=== PATIENT | female | born 1990 | race Caucasian/White ===

== ENCOUNTER 2020-12-23 08:35 | Emergency (ER) | payer BC, SELFPAY ==
[2020-12-23 09:07] LABS: Urine Blood Trace-intact (Negative); Urine Glucose Negative (Negative); Urine Protein 2+ (Negative); Urine Specific Gravity >=1.030 (1.005-1.030); Urine pH 5.5 (5.0-7.0)
[2020-12-23 09:33] LABS: Urine Specific Gravity/Preg >1.030 (1.005-1.030)
[2020-12-23 09:42] LABS: Urine Bacteria 20-50 /HPF (<20)
[2020-12-23] MEDS ORDERED: LIDOCAINE 1% MPF 2 ML AMPULE ONE ×2 (10:21→10:32)
[2020-12-23] MEDS ORDERED: CEFTRIAXONE 500 MG/VIAL ONE (10:21)
[2020-12-23] MEDS ORDERED: AZITHROMYCIN 250 MG TAB ONE ×2 (10:21→10:33)
--- NOTE | 2020-12-23 10:29 | ER ---
Nurse's Notes [facility] Name: Kim Marie Age: 29 yrs Sex: Female : 1990 Arrival Date: 12/23/2020 Time: 08:37 Bed 6 Private MD: Diagnosis: Unspecified sexually transmitted disease;UTI/ Urinary tract infection, site not specified Presentation: 12/23 08:47 Chief complaint: Patient states: "I am having some vaginal discharge and bad smell with jd3 pain.". Coronavirus screen: At this time, the client does not indicate any symptoms associated with coronavirus-19. Ebola Screen: Patient negative for fever greater than or equal to 101.5 degrees Fahrenheit, and additional compatible Ebola Virus Disease symptoms. Initial Sepsis Screen: Does the patient meet any 2 criteria? No. Patient's initial sepsis screen is negative. Does the patient have a suspected source of infection? No. Patient's initial sepsis screen is negative. Risk Assessment: Do you want to hurt yourself or someone else? Patient reports no desire to harm self or others. Onset of symptoms was December 22, 2020. 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 - Social history:: Smoking status: Patient/guardian denies using tobacco. Screenin:56 Abuse screen: Denies threats or abuse. Denies injuries from another. Nutritional sv screening: No deficits noted. Tuberculosis screening: No symptoms or risk factors identified. Fall Risk None identified. Assessment: 09:30 General: Appears in no apparent distress. comfortable, well developed, well nourished, sv Behavior is calm, cooperative, appropriate for age. Pain: Complains of pain in suprapubic area Pain currently is 4 out of 10 on a pain scale. Neuro: Level of Consciousness is awake, alert, obeys commands, Oriented to person, place, time, situation, Moves all extremities. Full function Gait is steady. Respiratory: Respiratory effort is even, unlabored, Respiratory pattern is regular, symmetrical. Derm: Skin is pink, warm \\T\\ dry. 10:35 Reassessment: Patient appears in no apparent distress at this time. No changes from sv previously documented assessment. Patient and/or family updated on plan of care and expected duration. Pain level reassessed. Patient is alert, oriented x 3, equal unlabored respirations, skin warm/dry/pink. Vital Signs: 08:49 BP 128 / 65; Pulse 123; Resp 17 S; Temp 97.9(TE); Pulse Ox 100% on R/A; Weight 70.31 kg jd3 (R); Height 5 ft. 4 in. (162.56 cm) (R); Pain 4/10; 08:49 Body Mass Index 26.61 (70.31 kg, 162.56 cm) jd3 ED Course: 08:37 Patient arrived in ED. wm 08:48 Triage completed. jd3 08:50 Arm band placed on. jd3 08:55 Yolanda Maria, RN is Primary Nurse. sv 08:55 Nat So, DEBORAH is PHCP. kb 08:55 Max Hudson MD is Attending Physician. kb 08:56 Patient has correct armband on for positive identification. Bed in low position. Call sv light in reach. Door closed. Head of bed elevated. 08:57 Nurse Practitioner and/or Physician Piano Player to see patient. sv 09:37 Urine --Ancillary (enter results) Sent. sv 09:45 GC (GONORR/CHLAMYDIA) Probe Sent. sv 09:45 Wet Prep Sent. sv 09:45 Assist provider with pelvic exam: Set up pelvic tray. Performed by Nat CABRERA Specimens sent to lab. Patient tolerated well. 10:35 Patient did not have IV access during this emergency room visit. sv Administered Medications: 10:05 Drug: Rocephin (cefTRIAXone) 500 mg Route: IM; Site: right gluteus; sv 10:35 Follow up: Response: No adverse reaction sv 10:05 Drug: Zithromax (azithromycin) 1 grams Route: PO; sv 10:35 Follow up: Response: No adverse reaction sv Outcome: 10:29 Discharge ordered by . judson 10:35 Discharged to home ambulatory. sv 10:35 Condition: stable 10:35 Discharge instructions given to patient, Instructed on discharge instructions, follow up and referral plans. medication usage, Demonstrated understanding of instructions, follow-up care, medications, Prescriptions given X 1. 10:35 Patient left the ED. sv Signatures: Nat So, JESSICA-C HIV COUNSELOR-Yolanda Persaud RN RN Mp Serrano RN RN Debbie De Jesus
--- NOTE | 2020-12-23 10:29 | EDPHYS ---
Physician Documentation [facility] Name: Kim Marie Age: 29 yrs Sex: Female : 1990 Arrival Date: 12/23/2020 Time: 08:37 Bed 6 Private MD: ED Physician Max Hudson HPI: 12/23 08:59 This 29 yrs old Female presents to ER via Ambulatory with complaints of kb Vaginal Discharge. 08:59 The patient presents with urinary symptoms, dysuria, vaginal discharge, that is kb malodorous yellow discharge, white discharge. Onset: The symptoms/episode began/occurred 2 day(s) ago. Modifying factors: The symptoms are alleviated by nothing, the symptoms are aggravated by nothing. Associated signs and symptoms: Pertinent positives: dysuria, vaginal discharge, Pertinent negatives: constipation, cramping, diarrhea, dyspareunia, fever, hematuria, nausea, urinary frequency, vaginal bleeding, vomiting. Severity of symptoms: At their worst the symptoms were moderate, in the emergency department the symptoms are unchanged. The patient is sexually active, reportedly has a single partner, does not use protection during intercourse. The patient has not experienced similar symptoms in the past. The patient has not recently seen a physician. Pt reports foul vaginal odor and discharge for 2 days. States the discharge was white, today it turned yellow which prompted her visit. Also reports dysuria. . 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 - Social history:: Smoking status: Patient/guardian denies using tobacco. ROS: 09:01 Positive for burning with urination, vaginal discharge, Negative for vaginal kb bleeding, vaginal itching. 09:01 Constitutional: Negative for fever, chills, and weight loss. 09:01 All other systems are negative. Exam: 09:01 Constitutional: This is a well developed, well nourished patient who is awake, alert, kb and in no acute distress. ENT: Moist Mucous membranes Cardiovascular: Regular rate and rhythm with a normal S1 and S2. No gallops, murmurs, or rubs. No pulse deficits. Respiratory: Respirations even and unlabored. No increased work of breathing, no retractions or nasal flaring. Skin: Warm, dry with normal turgor. Normal color. MS/ Extremity: Pulses equal, no cyanosis. Neurovascular intact. Full, normal range of motion. Neuro: Awake and alert, GCS 15, oriented to person, place, time, and situation. Moves all extremities. Normal gait. Psych: Awake, alert, with orientation to person, place and time. Behavior, mood, and affect are within normal limits. 09:01 Abdomen/GI: Inspection: abdomen appears normal, Bowel sounds: normal, in all quadrants, Palpation: soft, in all quadrants, mild abdominal tenderness, in the suprapubic area. 10:28 : Pelvic Exam: External exam: is normal, Speculum exam: no cervicitis, bimanual exam kb reveals normal findings, no cervical motion tenderness, discharge, white, the nurse was present for the exam. Vital Signs: 08:49 BP 128 / 65; Pulse 123; Resp 17 S; Temp 97.9(TE); Pulse Ox 100% on R/A; Weight 70.31 kg jd3 (R); Height 5 ft. 4 in. (162.56 cm) (R); Pain 4/10; 08:49 Body Mass Index 26.61 (70.31 kg, 162.56 cm) jd3 MDM: 08:56 Patient medically screened. kb 09:02 Data reviewed: vital signs, nurses notes. Data interpreted: Pulse oximetry: on room air kb is 100 %. Interpretation: normal. 09:15 ED course: Pt prefers not to have IV inserted and receive IV fluids. States she would kb rather drink PO fluids. Pt states she has anxiety and is a little nervous about the vaginal discharge. . 10:28 Counseling: I had a detailed discussion with the patient and/or guardian regarding: the kb historical points, exam findings, and any diagnostic results supporting the discharge/admit diagnosis, lab results, the need for outpatient follow up, an OB/Gyne specialist, to return to the emergency department if symptoms worsen or persist or if there are any questions or concerns that arise at home. 12/23 08:56 Order name: Urine Microscopic Only; Complete Time: 09:51 kb 12/23 09:05 Order name: Wet Prep kb 12/23 09:05 Order name: GC (GONORR/CHLAMYDIA) Probe kb 12/23 09:06 Order name: Wet Prep; Complete Time: 10:01 EDMS 12/23 09:06 Order name: GC (Matt/Chl) Probe CX/URE EDMS 12/23 09:06 Order name: Urine Dipstick-Ancillary; Complete Time: 09:11 EDMS 12/23 08:56 Order name: Urine Test (obtain specimen); Complete Time: 09:08 kb 12/23 08:56 Order name: Urine Dipstick-Ancillary (obtain specimen); Complete Time: 09:08 kb 12/23 09:05 Order name: Pelvic Exam Setup; Complete Time: 09:18 kb 12/23 09:21 Order name: Urine --Ancillary (enter results) bd 12/23 09:22 Order name: Urine --Ancillary; Complete Time: 09:51 EDMS 12/23 09:45 Order name: Urine Culture EDMS Administered Medications: 10:05 Drug: Rocephin (cefTRIAXone) 500 mg Route: IM; Site: right gluteus; sv 10:35 Follow up: Response: No adverse reaction sv 10:05 Drug: Zithromax (azithromycin) 1 grams Route: PO; sv 10:35 Follow up: Response: No adverse reaction sv Disposition: 15:59 Co-signature as Attending Physician, Max Hudson MD. rn Disposition: 12/23/20 10:29 Discharged to Home. Impression: Unspecified sexually transmitted disease, UTI/ Urinary tract infection, site not specified. - Condition is Stable. - Discharge Instructions: Sexually Transmitted Disease, [id number], Urinary Tract Infection, Adult, [id number]. - Prescriptions for Doxycycline Hyclate 100 mg Oral Tablet - take 1 tablet by ORAL route every 12 hours; 20 tablet. - Medication Reconciliation Form, Thank You Letter, Antibiotic Education, Prescription Opioid Use form. - Follow up: Emergency Department; When: As needed; Reason: Worsening of condition. Follow up: Private Physician; When: 2 - 3 days; Reason: Recheck today's complaints, Continuance of care, Re-evaluation by your physician. Signatures: Dispatcher [employer] EDMS Nat So, FITNESS/WELLNESS DIRECTOR-C FITNESS/WELLNESS DIRECTOR-Ckb Yolanda Maria, RN RN Max Lopez MD MD rn Davies, Jonathon, RN RN jd3 Corrections: (The following items were deleted from the chart) 10:35 10:29 12/23/2020 10:29 Discharged to Home. Impression: Unspecified sexually transmitted sv disease; Urinary tract infection, site not specified. Condition is Stable. Forms are Medication Reconciliation Form, Thank You Letter, Antibiotic Education, Prescription Opioid Use. Follow up: Emergency Department; When: As needed; Reason: Worsening of condition. Follow up: Private Physician; When: 2 - 3 days; Reason: Recheck today's complaints, Continuance of care, Re-evaluation by your physician. kb
[2020-12-23] MEDS ORDERED: CEFTRIAXONE 1000 MG/VIAL ONE (10:33)
[2020-12-23 10:42] VITALS: BP 128/65; TEMP 97.9; O2SAT 100
[2020-12-25 15:53] LABS: C.trachomatis RNA,TMA Not Detected (Not Detected)
== END 2020-12-23 10:35 | disposition home or self-care (01) ==
LOC: ER 08:35
DX: A64 Unspecified sexually transmitted disease (principal); N39.0 Urinary tract infection, site not specified
CPT/HCPCS: 81003; 81015; 81025; 87086; 87088; 87210; 87490; 87590; 96372; 99284; J0696

== ENCOUNTER 2020-12-28 20:40 | Emergency (ER) | payer SELFPAY ==
[2020-12-28] MEDS ORDERED: FLUCONAZOLE 100 MG TAB ONE (23:03)
[2020-12-28 23:22] LABS: Urine Blood Negative (Negative); Urine Glucose Negative (Negative); Urine Protein Trace (Negative); Urine Specific Gravity 1.025 (1.005-1.030); Urine pH 5.5 (5.0-7.0)
--- NOTE | 2020-12-28 23:26 | EDPHYS ---
Physician Documentation [facility] Name: Kim Marie Age: 30 yrs Sex: Female : 1990 Arrival Date: 12/28/2020 Time: 20:42 Bed 16 Private MD: ED Physician Jacob Solorio HPI: 12/28 22:56 This 30 yrs old Female presents to ER via Ambulatory with complaints of pm1 Vaginal Pain. 22:56 The patient presents with vaginal itching and burning. Burning with urination. Onset: pm1 The symptoms/episode began/occurred 4 day(s) ago. Modifying factors: The symptoms are alleviated by nothing, the symptoms are aggravated by urinating. Associated signs and symptoms: Pertinent negatives: fever, nausea, vomiting, abdominal pain. Severity of symptoms: in the emergency department the symptoms are actually worse. The patient has been recently seen at the [facility] Emergency Department, last week, for similar complaints labs were performed, was given a prescription for antibiotics. 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 - Social history:: Smoking status: Reported history of juuling and/or vaping. ROS: 22:56 Positive for urinary symptoms, vaginal itching, Negative for pelvic pain, flank pain.pm1 22:56 Constitutional: Negative for fever, chills, and weight loss, Cardiovascular: Negative for chest pain, palpitations, and edema, Respiratory: Negative for shortness of breath, cough, wheezing, and pleuritic chest pain, Abdomen/GI: Negative for abdominal pain, nausea, vomiting, diarrhea, and constipation, Back: Negative for injury and pain, MS/Extremity: Negative for injury and deformity, Skin: Negative for injury, rash, and discoloration. 22:56 All other systems are negative. Exam: 22:56 Constitutional: This is a well developed, well nourished patient who is awake, alert, pm1 and in no acute distress. Head/Face: Normocephalic, atraumatic. 22:56 Back: No spinal tenderness. No costovertebral tenderness. Full range of motion. Skin: Warm, dry with normal turgor. Normal color with no rashes, no lesions, and no evidence of cellulitis. MS/ Extremity: Pulses equal, no cyanosis. Neurovascular intact. Full, normal range of motion. 22:56 Eyes: Exam is negative for acute changes, Periorbital structures: appear normal, Extraocular movements: intact throughout. 22:56 ENT: Mouth: Lips: normal, Oral mucosa: normal, pink and intact, moist. 22:56 Cardiovascular: Exam negative for acute changes, Rate: normal, Rhythm: regular, Pulses: no pulse deficits are appreciated. 22:56 Respiratory: Exam negative for acute changes, respiratory distress, shortness of breath. 22:56 Abdomen/GI: Exam negative for acute changes, Inspection: abdomen appears normal, Palpation: abdomen is soft and non-tender, in all quadrants. 22:56 Neuro: Exam negative for acute changes, Orientation: is normal, Mentation: is normal, Motor: is normal, moves all fours. Vital Signs: 20:59 BP 121 / 90; Pulse 87; Resp 16; Temp 98.4(O); Pulse Ox 99% on R/A; Weight 65.77 kg; em Height 5 ft. 4 in. (162.56 cm); Pain 4/10; 23:42 BP 112 / 68; Pulse 74; Resp 16; Pulse Ox 100% on R/A; ak2 20:59 Body Mass Index 24.89 (65.77 kg, 162.56 cm) em MDM: 22:14 Patient medically screened. pm1 23:24 Data reviewed: vital signs. Data interpreted: Pulse oximetry: on room air is 99 %. pm1 Interpretation: normal. Counseling: I had a detailed discussion with the patient and/or guardian regarding: the historical points, exam findings, and any diagnostic results supporting the discharge/admit diagnosis, lab results, the need for outpatient follow up, to return to the emergency department if symptoms worsen or persist or if there are any questions or concerns that arise at home. 23:29 ED course: Urine culture from 12/23 reviewed. Patient did not get antibiotic called in pm1 for UTI. 12/28 23:22 Order name: Urine Dipstick-Ancillary EDWI 12/28 22:56 Order name: Urine Dipstick-Ancillary (obtain specimen); Complete Time: 23:26 pm1 12/28 22:56 Order name: Urine Test (obtain specimen); Complete Time: 23:26 pm1 12/28 23:26 Order name: Urine --Ancillary (enter results) em Administered Medications: 22:47 Drug: DiFLUcan (fluconazole) 150 mg Route: PO; ak2 Disposition: 12/29 03:44 Co-signature as Attending Physician, Jacob Solorio MD. [email or web address] Disposition Summary: 12/28/20 23:25 Discharge Ordered Location: Home pm1 Problem: new pm1 Symptoms: have improved pm1 Condition: Stable pm1 Diagnosis - Candidiasis, unspecified pm1 - UTI/ Urinary tract infection, site not specified pm1 Followup: pm1 - With: Emergency Department - When: As needed - Reason: Worsening of condition Followup: pm1 - With: Private Physician - When: 2 - 3 days - Reason: Recheck today's complaints, Continuance of care, Re-evaluation by your physician Discharge Instructions: - Discharge Summary Sheet pm1 - Urinary Tract Infection, Adult pm1 - Vaginal Yeast Infection, Adult pm1 Forms: - Medication Reconciliation Form pm1 - Thank You Letter pm1 - Antibiotic Education pm1 - Prescription Opioid Use pm1 Prescriptions: - levofloxacin 750 mg Oral tablet - take 1 tablet by ORAL route once daily for 5 days; 5 tablet; Refills: 0, pm1 Product Selection Permitted - Pyridium 200 mg Oral Tablet - take 1 tablet by ORAL route every 8 hours for 3 days; 9 tablet; Refills: 0, pm1 Product Selection Permitted Signatures: Dispatcher [employer] Jacob Huggins MD MD pkJi Pearce, RN RN Augustus Polo, MANUEL TOP POLISHER pm1 Franky Durand ak2
--- NOTE | 2020-12-28 23:26 | ER ---
Nurse's Notes [facility] Name: Kim Marie Age: 30 yrs Sex: Female : 1990 Arrival Date: 12/28/2020 Time: 20:42 Bed 16 Private MD: Diagnosis: Candidiasis, unspecified;UTI/ Urinary tract infection, site not specified Presentation: 12/28 20:59 Chief complaint: Patient states: was here 4 days ago for vaginal problems and was given em an antibiotic, reports symptoms are worse, might have a yeast infection, reports itchiness and burning with urination, denies fever. Coronavirus screen: Client denies travel out of the [place] in the last 14 days. Ebola Screen: Patient negative for fever greater than or equal to 101.5 degrees Fahrenheit, and additional compatible Ebola Virus Disease symptoms Patient denies exposure to infectious person. Patient denies travel to an Ebola-affected area in the 21 days before illness onset. No symptoms or risks identified at this time. Initial Sepsis Screen: Does the patient meet any 2 criteria? No. Patient's initial sepsis screen is negative. Does the patient have a suspected source of infection? Yes: Dysuria/Frequency/Urgency/UTI. Risk Assessment: Do you want to hurt yourself or someone else? Patient reports no desire to harm self or others. Onset of symptoms was December 28, 2020. 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 - Social history:: Smoking status: Reported history of juuling and/or vaping. Vital Signs: 20:59 BP 121 / 90; Pulse 87; Resp 16; Temp 98.4(O); Pulse Ox 99% on R/A; Weight 65.77 kg; em Height 5 ft. 4 in. (162.56 cm); Pain 4/10; 23:42 BP 112 / 68; Pulse 74; Resp 16; Pulse Ox 100% on R/A; ak2 20:59 Body Mass Index 24.89 (65.77 kg, 162.56 cm) em ED Course: 20:42 Patient arrived in ED. ag3 21:01 Triage completed. em 21:01 Arm band placed on. em 21:59 Augustus Gonzalez NP is PHCP. pm1 21:59 Jacob Solorio MD is Attending Physician. pm1 22:10 Franky Durand is Primary Nurse. ak2 Administered Medications: 22:47 Drug: DiFLUcan (fluconazole) 150 mg Route: PO; ak2 Outcome: 23:25 Discharge ordered by . pm1 23:42 Discharged to home ambulatory. ak2 23:42 Condition: good 23:42 Discharge instructions given to patient, Prescriptions given X 23:43 Patient left the ED. ak2 Signatures: Ji Stoddard RN RN Augustus Gonzalez NP INSTRUCTOR PAINTING pm1 aMria Weber ag3 Franky Durand ak2
[2020-12-28 23:34] LABS: Urine Specific Gravity/Preg 1.025 (1.005-1.030)
[2020-12-28 23:49] VITALS: TEMP 98.4
[2020-12-28 23:50] VITALS: BP 112/68; O2SAT 100
== END 2020-12-28 23:43 | disposition home or self-care (01) ==
LOC: ER 20:40
DX: B37.49 Other urogenital candidiasis (principal)
CPT/HCPCS: 81003; 81025; 99283